=== PATIENT | female | born 1970 | race Two or more races ===

== ENCOUNTER 2017-04-07 09:13 | Day surgery (SDC) | payer OTHER ==
[2017-01-02 09:01] VITALS: BMI 34.4
[2017-04-07] MEDS ORDERED: Lactated Ringer's 1,000 ML IV ONE (10:40)
[2017-04-07 11:40] VITALS: O2SAT 98
[2017-04-07] MEDS ORDERED: Propofol 10 mg/ml Inj (20 ML) ONE (12:54)
[2017-04-07 13:27] VITALS: TEMP 97
[2017-04-07 13:37] VITALS: BP 122/77; PULSE 69; RESP 19
== END 2017-04-07 13:37 | disposition home or self-care (01) ==
LOC: H.ENDO 09:13
PROVIDERS: ATTEND Internal Medicine Gastroenterology
DX: R10.13 Epigastric pain (principal); J45.909 Unspecified asthma, uncomplicated; I10 Essential (primary) hypertension; K25.9 Gastric ulcer, unspecified as acute or chronic, without hemorrhage or perforation; K29.50 Unspecified chronic gastritis without bleeding
CPT/HCPCS: 43239; 88305; J2704; J7120